=== PATIENT | female | born 1960 | race Caucasian/White ===

== ENCOUNTER 2020-10-30 10:50 | Emergency (ER) | payer SELFPAY ==
[~2020-10-30] VITALS: Ht 157.5 cm; Wt 84.0 kg
[2020-10-30] MEDS ORDERED: MORPHINE SULFATE 4 MG/ML CPJ (NOT FOR IM USE) IV STA (11:10)
[2020-10-30] MEDS ORDERED: CEFAZOLIN 1000MG PREMIX 50 ML IV ONE (11:15)
[2020-10-30] MEDS ORDERED: TETANUS, DIPHTHERIA, PERTUSSIS VAC/PF 0.5ML (>7YR OLD) IM ONE (11:15)
[2020-10-30] MEDS ORDERED: MORPHINE SULFATE 4 MG/ML CPJ (NOT FOR IM USE) IV ONE ×2 (12:45→14:15)
[2020-10-30 14:05] LABS: BASOPHILS % 0.3 % (0.0-2.0); EOSINOPHILS % 0.5 % (0.0-5.0); HEMATOCRIT. 38.2 % (36.0-48.0); HEMOGLOBIN. 12.6 g/dL (12.0-16.0); LYMPHOCYTES % 13.7 % (20.0-50.0); MEAN CORPUSCULAR HEMOGLOBIN 28.7 pg (28.0-32.0); MONOCYTES % 4.7 % (2.0-8.0); NEUTROPHILS % 80.8 % (40.0-76.0); PLATELET 267 x1000/uL (130-400); RED BLOOD CELL COUNT 4.39 mill/uL (4.2-5.4); RED CELL DISTRIBUTION WIDTH 14.2 % (11.6-14.6)
[2020-10-30 14:08] LABS: CHLORIDE 110 mEq/L (98-107)
[2020-10-30 14:11] LABS: PROTHROMBIN TIME 10.5 sec (9.6-11.0)
[2020-10-30] MEDS ORDERED: ONDANSETRON HCL 4MG/2ML INJ IV ONE (15:00)
[2020-10-30 15:35] VITALS: BP 140/55
== END 2020-10-30 16:19 | disposition short-term general hospital (02) ==
LOC: ER 10:50
DX: M25.571 Pain in right ankle and joints of right foot (principal)
CPT/HCPCS: 29505; 36415; 73590; 80053; 85025; 85610; 96365; 96375; 96376; 99285; J0690; J2270; J2405; 90715